=== PATIENT | female | born 2000 | race Caucasian/White ===

== ENCOUNTER 2020-05-17 23:15 | Emergency (ER) | payer MEDICAID, OTHER ==
[~2020-05-17] VITALS: Ht 165.1 cm; Wt 59.0 kg
[2020-05-17 23:59] VITALS: BP 122/77
== END 2020-05-18 ==
LOC: ER 23:16
DX: Z02.89 Encounter for other administrative examinations (principal); Z72.89 Other problems related to lifestyle; V98.8XXA Other specified transport accidents, initial encounter; Y93.89 Activity, other specified; Y92.89 Other specified places as the place of occurrence of the external cause; Y99.8 Other external cause status
CPT/HCPCS: 99283